=== PATIENT | female | born 1980 | race Caucasian/White ===

== ENCOUNTER 2017-06-11 16:00 | Inpatient (IN) ==
[2017-06-11] MEDS ORDERED: Ketorolac 30 MG/ML VIAL IVP ONE (16:36)
[2017-06-11] MEDS ORDERED: Ondansetron 4 MG/2 ML VIAL IVP ONE (16:36)
[2017-06-11] MEDS ORDERED: 0.9 % Sodium Chloride 1,000 ML IVC ONE (16:37)
--- NOTE | 2017-06-11 16:41 | Emergency Department Note ---
Disposition Clinical Impression: Pancreatitis Qualifiers: Chronicity: acute Pancreatitis type: unspecified pancreatitis type Acute pancreatitis complication: no infection or necrosis Qualified Code(s): K85.90 - Acute pancreatitis without necrosis or infection, unspecified Disposition: Admitted As Inpatient Condition: Good Referrals: Ramila Luna CNP [Primary Care Provider] - Forms: ED Satisfaction Letter, Work/School Release Abdominal Pain HPI - General Chief Complaint: ED Abdominal Pain Stated Complaint: stomach pain, vomiting Time Seen by Provider: 06/11/17 16:15 Source: patient, family Mode of arrival: private vehicle Limitations: no limitations Nursing Notes Reviewed: Yes Vital Signs Reviewed: Yes - History of Present Illness HPI Narrative: Patient presents to the ED with epigastric abdominal pain, nausea or vomiting. States the pain has been going on for over a week. She was recently admitted at [facility] from June 03 the for pancreatitis. States she is still having pain when she was discharged. The following day she went to [facility] ED for the pain. She states they gave her a shot of pain medication and did some blood work. States the doctor came in and said it was the same as before and asked that she wanted to be admitted or go home. She chose to go home because she does not like [facility]. She has continued to have pain since that time. She saw her process controller today for routine follow-up who advised that she come back to the ED if she was still having that much pain. She describes her pain as constant and throbbing. She rates it an 8 out of 10. She has had 2 episodes of emesis today. She has had some intermittent diarrhea after being constipated while at [facility]. She states she is hot and cold at night but denies any recorded fevers. No urinary symptoms. She had a prior episode of pancreatitis in August of this year and was also hospitalized at [facility] at that time. She states they told her it was due to her new diabetic medication at that time. She states they did not give her a cause for her pancreatitis last week. She has had her gallbladder removed. She has also had a bowel resection due to a ruptured appendix aproximately 5 years ago as well as a hysterectomy due to uterine cancer. Other notable conditions include diabetes, CKD, fatty liver and GERD. She states her sugars have been well controlled recently in the s. She has some 7.5 mg hydrocodone that was prescribed for her back pain which she last took this morning but states she threw it back up. She was also prescribed Phenergan at [facility] which she took this morning as well. She has not vomited again since the Phenergan but has not tried to eat or drink since that time. Pain Scale: 8 - Related Data Home Medications Medication Instructions Recorded Confirmed Ammonium Lactate [Lac-Hydrin Five] 113 gm TP DAILY 06/11/17 06/11/17 Cholecalciferol (Vitamin D3) 1,000 unit PO BID 06/11/17 06/11/17 [Vitamin D] Docusate Sodium [Stool Softener] 100 mg PO DAILY 06/11/17 06/11/17 Doxepin HCl 75 mg PO DAILY 06/11/17 06/11/17 Duloxetine HCl [Cymbalta] 60 mg PO DAILY 06/11/17 06/11/17 Gabapentin [Neurontin] 300 mg PO TID 06/11/17 06/11/17 HYDROcodone/Acet 7.5/325 mg [[place] 1 tab PO TID 06/11/17 06/11/17 7.5-325 mg] Insulin Degludec [Tresiba 120 unit SQ DAILY 06/11/17 06/11/17 Flextouch U-100] Insulin LISPRO [Humalog] 0 unit SQ ACHS 06/11/17 06/11/17 Omeprazole [PriLOSEC] 20 mg PO DAILY 06/11/17 06/11/17 hydrOXYzine HCl [Hydroxyzine HCl] 50 mg PO QID 06/11/17 06/11/17 lamoTRIgine [Lamotrigine] 200 mg PO BID 06/11/17 06/11/17 Allergies Allergy/AdvReac Type Severity Reaction Status Date / Time No Known Allergies Allergy Verified 06/11/17 16:26 Constitutional: Denies: fever, chills, weakness, weight change Eyes: Denies: eye pain, eye discharge, vision change ENT ED: Denies: ear pain, throat pain, dental pain, hearing loss, epistaxis, congestion, dysphagia Cardiovascular: Denies: chest pain, palpitations, dyspnea on exertion, edema, syncope Respiratory: Denies: cough, dyspnea, wheezes, hemoptysis, stridor Gastrointestinal: Reports: as per HPI, abdominal pain, nausea, vomiting. Denies : diarrhea, constipation, hematemesis, melena, hematochezia Genitourinary: Denies: dysuria, frequency, hematuria, discharge Musculoskeletal: Denies: back pain, neck pain, arthralgia, myalgia Integumentary: Denies: rash, abrasion, lesions Neurological: Denies: headache, weakness, numbness, paresthesias, confusion, abnormal gait, vertigo Psychiatric: Denies: anxiety, depression, suicidal thoughts, homicidal thoughts , auditory hallucinations, visual hallucinations Endocrine: Denies: fatigue Hematological/Lymphatic: Denies: easy bleeding, easy bruising Allergic/Immunologic: Denies: facial swelling, urticaria Abdominal Pain PMH - Past Medical History Medical history: Reports: arthritis, cancer, diabetes, GERD, hypertension, renal disease Female Surgical History: Reports: Adenoidectomy, appendectomy, cholecystectomy, hysterectomy, Tonsillectomy Psychiatric history: Reports: no psych history - Social History Smoking status: Never smoker Alcohol use: Reports: none Drug use: Reports: none Physical Exam - General Limitations: no limitations General appearance: alert, in no apparent distress - Head Head exam: atraumatic, normocephalic, normal inspection - Eye Eye exam: Present: normal appearance, PERRL, EOMI - ENT ENT exam: normal exam, normal oropharynx, mucous membranes moist - Neck Neck exam: Present: normal inspection, full ROM, trachea midline - Chest Chest inspection: Present: normal inspection, symmetric chest wall rise - Respiratory Respiratory exam: Present: normal lung sounds bilaterally - Cardiovascular Cardiovascular exam: Present: regular rate, normal rhythm, normal heart sounds - Abdominal Exam Abdominal exam: Present: soft, tenderness. Absent: Non-Tender, distention, guarding, rebound, rigidity, normal bowel sounds Abdominal tenderness: Present: RUQ, LUQ, epigastrium, moderate - Extremities Exam Extremities exam: Present: normal inspection, full ROM. Absent: tenderness, pedal edema - Back Exam Back exam: Present: normal inspection, full ROM. Absent: tenderness - Neurological Exam Neurological exam: Present: alert, oriented X3 - Psychiatric Psychiatric exam: Present: normal affect, normal mood - Skin Skin exam: Present: warm, dry, intact, normal color Course Course Narrative: Reason presents to the ED complaining of persistent epigastric abdominal pain, nausea or vomiting since being hospitalized for pancreatitis last week. She is afebrile and nontoxic in appearance but is hypertensive. She has tenderness across the entire upper abdomen. Will give IV fluids, medication for pain and nausea and obtain labs to evaluate further. - Reevaluation(s) Reevaluation #1: Patient reports nausea has improved and she has not had any vomiting but her pain has only improved from 827. Laboratory studies are unremarkable other than stable chronic kidney disease and elevated lipase. I have no records to know if her lipase is higher or lower than when she had pancreatitis one week ago. Given that she is having persistent symptoms we will obtain a CT scan to look for evidence of persistent pancreatitis or any complications from her recent pancreatitis. Will give additional pain medication. Time: 17:52 Reevaluation #2: Pain improved [address] scan does not show any current pancreatic inflammation or other acute abnormalities. Discussed with patient the option of pain and nausea medicine at home versus admission for pain control. Patient states she does not feel like she can manage her symptoms at home as she has already tried this for the past 5 days without success. I spoke to the hospitalist on-call, Dr. Garcia, who has agreed to admit the patient for IV fluids and pain control. We will make her nothing by mouth except ice chips and meds. Vital Signs Temperature 98.0 F 06/11/17 16:11 Pulse Rate 83 06/11/17 16:11 Respiratory Rate 18 06/11/17 16:11 Blood Pressure 192/119 06/11/17 16:11 O2 Sat by Pulse Oximetry 99 06/11/17 16:11 Temperature 98.0 F 06/11/17 16:11 Pulse Rate 83 06/11/17 16:11 Respiratory Rate 18 06/11/17 16:11 Blood Pressure 192/119 06/11/17 16:11 O2 Sat by Pulse Oximetry 99 06/11/17 16:11 Oxygen Delivery Oxygen Delivery Room Air Abdominal Pain - Differential Diagnosis Differential Diagnosis: Likely: abdominal pain non-specific, pancreatitis - Medical Records Medical records reviewed: Yes I reviewed the patient's medical records. - Lab Data Lab results reviewed: Yes I reviewed the patient's lab results. Result diagrams: 06/11/17 17:14 06/11/17 17:14 Lab Results 06/11/17 06/11/17 Range/Units 17:14 17:14 WBC 5.4 (4.3-11.1) K/mcL RBC 5.32 H (3.82-4.97) M/mcL Hgb 14.8 (11.5-15.4) g/dL Hct 45.7 H (35.3-44.9) % MCV 85.9 (83.0-100.0) fL MCH 27.8 L (28.0-33.3) pg MCHC 32.4 (31.6-35.5) g/dL RDW 13.7 (11.5-14.5) % Plt Count 112 L (140-400) K/mcL MPV 11.3 (9.4-12.4) fL Immature Gran % 0.2 (0-4) % Seg Neutrophils % 54.2 % Lymphocytes % 34.2 % Monocytes % 7.3 % Eosinophils % 3.7 % Basophils % 0.4 % Neutrophils # 2.9 (1.6-8.9) K/mcL Lymphocytes # 1.8 (0.6-4.6) K/mcL Monocytes # 0.4 (0.0-1.3) K/mcL Eosinophils # 0.2 (0.0-0.6) K/mcL Basophils # 0.0 (0.0-0.2) K/mcL Sodium 137 (136-145) mEq/L Potassium 4.1 (3.5-4.5) mEq/L Chloride 99 (98-109) mEq/L Carbon Dioxide 30 H (19-29) mEq/L BUN 10 (7-20) mg/dL Creatinine 1.23 H (0.57-1.11) mg/dL Est GFR ( Amer) 59 L (> 60) Est GFR (Non-Af Amer) 49 L (> 60) BUN/Creatinine Ratio 8 (6-26) Glucose 192 H (70-99) mg/dL Calculated Osmolality 288 (280-300) Calcium 10.0 (8.6-10.8) mg/dL Total Bilirubin 0.4 (0.2-1.2) mg/dL AST 21 (5-34) Units/L ALT 27 (0-55) Units/L Alkaline Phosphatase 122 (38-126) Units/L Serum Total Protein 7.9 (6.0-8.3) g/dL Albumin 3.3 L (3.5-5.0) g/dL Globulin 4.6 H (2.4-3.5) g/dL Albumin/Globulin Ratio 0.7 L (1.1-2.2) Lipase 92 H (8-78) Units/L
[2017-06-11 17:18] LABS: Basophils % 0.4 %; Eosinophils # 0.2 K/mcL (0.0-0.6); Eosinophils % 3.7 %; Hematocrit 45.7 % (35.3-44.9); Hemoglobin 14.8 g/dL (11.5-15.4); Immature Granulocytes % 0.2 % (0-4); Lymphocytes # 1.8 K/mcL (0.6-4.6); Lymphocytes % 34.2 %; Mean Corpuscular HGB Conc 32.4 g/dL (31.6-35.5); Mean Corpuscular Hemoglobin 27.8 pg (28.0-33.3); Mean Corpuscular Volume 85.9 fL (83.0-100.0); Mean Platelet Volume 11.3 fL (9.4-12.4); Monocytes # 0.4 K/mcL (0.0-1.3); Monocytes % 7.3 %; Neutrophils # 2.9 K/mcL (1.6-8.9); Platelet Count 112 K/mcL (140-400); Red Blood Count 5.32 M/mcL (3.82-4.97); Red Cell Distribution Width 13.7 % (11.5-14.5); Segmented Neutrophils % 54.2 %
[2017-06-11 17:35] LABS: Albumin 3.3 g/dL (3.5-5.0); Albumin/Globulin Ratio 0.7 (1.1-2.2); Bilirubin,Total 0.4 mg/dL (0.2-1.2); Globulin 4.6 g/dL (2.4-3.5); Potassium 4.1 mEq/L (3.5-4.5); Total Protein 7.9 g/dL (6.0-8.3)
[2017-06-11] MEDS ORDERED: *HR* HYDROmorphone (PF) 1 MG/ML SYRINGE IVP ONE (17:52)
[2017-06-11] MEDS ORDERED: *HR* HYDROmorphone (PF) 1 MG/ML SYRINGE IVP PRN (19:16)
[2017-06-11] MEDS ORDERED: Naloxone 0.4 MG/ML INJ IVP PRN ×2 (19:16→20:55)
[2017-06-11] MEDS ORDERED: Ondansetron 4 MG/2 ML VIAL IVP PRN (19:16)
[2017-06-11] MEDS ORDERED: *HR* Dextrose 50 % in Water (Syg) 50 ML SYRINGE IVP PRN ×2 (19:19→20:55)
[2017-06-11] MEDS ORDERED: Dextrose Gel 15 GM PO PRN ×4 (19:19→20:55)
[2017-06-11] MEDS ORDERED: D5% in Water 1,000 ML IVC PRN ×2 (19:19→20:55)
[2017-06-11] MEDS ORDERED: 0.9 % Sodium Chloride 1,000 ML IVC SCH (19:30)
[2017-06-11] MEDS: 0.9 % Sodium Chloride 1,000 ML IVC SCH (21:59)
[2017-06-11] MEDS: Gabapentin 300 MG CAPSULE PO SCH (22:00)
[2017-06-11] MEDS: Cholecalciferol (D-3) 1,000 UNIT TABLET PO SCH (22:00)
[2017-06-11] MEDS: lamoTRIgine 100 MG TABLET PO SCH (22:00)
[2017-06-11] MEDS: hydrOXYzine pamoate 25 MG CAPSULE PO SCH (22:00)
[2017-06-11] MEDS: *HR* HYDROmorphone (PF) 1 MG/ML SYRINGE IVP PRN (22:01)
[2017-06-12] MEDS ORDERED: Insulin LISPRO 300 UNITS/3 ML VIAL SQ SCH
[2017-06-12] MEDS: Insulin LISPRO 300 UNITS/3 ML VIAL SQ SCH ×4 (00:16→17:40)
[2017-06-12] MEDS: *HR* HYDROmorphone (PF) 1 MG/ML SYRINGE IVP PRN ×6 (02:07→23:42)
[2017-06-12] MEDS: 0.9 % Sodium Chloride 1,000 ML IVC SCH (06:05)
[2017-06-12] MEDS: hydrOXYzine pamoate 25 MG CAPSULE PO SCH ×4 (09:49→23:43)
[2017-06-12] MEDS: Gabapentin 300 MG CAPSULE PO SCH ×3 (09:49→23:44)
[2017-06-12] MEDS: Cholecalciferol (D-3) 1,000 UNIT TABLET PO SCH ×2 (09:49→23:43)
[2017-06-12] MEDS: lamoTRIgine 100 MG TABLET PO SCH ×2 (09:49→23:42)
[2017-06-12] MEDS: Ammonium Lactate 30 APPL/225 GM BOTTLE TP SCH (09:50)
[2017-06-12] MEDS: Ondansetron 4 MG/2 ML VIAL IVP PRN ×2 (09:57→19:14)
--- NOTE | 2017-06-12 14:27 | Internal Med History&Physical ---
Date of Encounter: 06/12/17 Time of Encounter: 14:24 Assessment and Plan (1) Pancreatitis Current visit: Yes Status: Acute Patient with continued symptoms and pain related to pancreatitis. Admission labs show a lipase of 92. CT of the abdomen was obtained and showed no acute process. Patient with several hospital visits in recent weeks for treatment of pancreatitis and pain. Patient continues to be symptomatic, with pain and nausea. Patient does state that after each hospital visit that she had nausea that was triggered from eating, but continued to have oral intake. Currently we will keep patient nothing by mouth for at least 24 hours. We will continue with IV fluids to maintain hydration. We will check serial lipase and review labs. Qualifiers: Chronicity: acute Pancreatitis type: unspecified pancreatitis type Acute pancreatitis complication: no infection or necrosis Qualified Code(s): K85.90 - Acute pancreatitis without necrosis or infection, unspecified (2) Diabetes mellitus Current visit: Yes Status: Chronic Patient with history of uncontrolled diabetes. Patient states that she believes her most recent hemoglobin A1c was 7.8. We will continue with current coverage and do fingersticks before meals and at bedtime and cover with sliding scale. We will hold any oral diabetic medications. We will repeat hemoglobin A1c on next blood draw Qualifiers: Diabetes mellitus type: type 2 Diabetes mellitus complication status: with kidney complications Diabetes mellitus complication detail: with chronic kidney disease Diabetes mellitus intermediate insulin use: with furnace keeper use Chronic kidney disease stage: stage 3 (moderate) Qualified Code(s): E11.22 - Type 2 diabetes mellitus with diabetic chronic kidney disease; N18.3 - Chronic kidney disease, stage 3 (moderate); N18.3 - Chronic kidney disease, stage 3 ( moderate); Z79.4 - shelter (current) use of insulin; Z79.4 - grey roll man ( current) use of insulin; Z79.4 - grey roll man (current) use of insulin; Z79.4 - grey roll man (current) use of insulin (3) Chronic kidney disease Current visit: Yes Status: Chronic Patient with history of stage III chronic kidney disease. Admission creatinine shows 1.23 with a BUN of 10. We will continue to monitor renal process draining serial labs. Qualifiers: Chronic kidney disease stage: stage 3 (moderate) Qualified Code(s): N18.3 - Chronic kidney disease, stage 3 (moderate) (4) Lumbar disc disease Current visit: Yes Status: Chronic Patient states history of lumbar disc disease. Denies any history of surgery but states she has had several interventions for pain control. Patient currently denies any low back pain or radicular symptoms. We will continue to monitor patient's pain status. We will avoid increasing her narcotics at this time due to her pancreatitis Internal Medicine - H&P: HPI Admitted From: Home Plans for Post Hospital Care: Home History of present illness: Ms. Nguyen is a 36 year old female Patient presents to the ED with epigastric abdominal pain, nausea or vomiting. She was recently admitted at [facility] from June 03 the for pancreatitis. States she is still having pain when she was discharged. The following day she went to [facility] ED for the pain and was treated for pain and discharged to homed. She saw her poultry feed supervisor today for routine follow- up who advised that she come back to the ED if she was still having that much pain. She describes her pain as constant and throbbing, mostly to the upper abdomen. States that her pain becomes severe during palpation and she has noticed that eating has triggered an increase in the pain. Pt states that she has not vomited since her admission. She had a prior episode of pancreatitis in August of this year and was also hospitalized at [facility] at that time. She states they told her it was due to her new diabetic medication at that time. She has had her gallbladder removed approximately 3 years ago . She has also had a bowel resection due to a ruptured appendix aproximately 5 years ago as well as a hysterectomy due to uterine cancer. Other notable conditions include diabetes, CKD, fatty liver and GERD. She states her sugars have been well controlled, but states that her last HbgA1C was 7.8. Patients labs were reviewed with Lipase 92. CT of abdomen was reviewed and showed no acute process. She takes 7.5 mg hydrocodone TID daily, which prescribed for lumbar disc disease. Past Med Surg Social Fam HX - Past Medical History Medical history: arthritis, cancer, diabetes, GERD, hypertension, liver disease , renal disease Psychiatric history: bipolar, depression - Past Surgical History Surgical History: cancer surgery (Adenoidectomy, appendectomy, cholecystectomy, hysterectomy, Tonsillectomy), hysterectomy (hysterectomy secondary to uterine CA , colon resection secondary to tuptured appendex), other (Adenoidectomy, appendectomy, cholecystectomy, hysterectomy, Tonsillectomy) - Social History Smoking Status: Never smoker Smokeless Tobacco Status: No Alcohol use: none Drug use: none Current living situation: Home - Independent Activity Level: Independent ambulation Recent Out of Country Travel Within the Last 8 Weeks: No Exposure or Possible Exposure to Illness During Travel: No - Family History Mother History Unknown: Yes Father History Unknown: Yes Internal Medicine - H&P: Meds Ammonium Lactate [Lac-Hydrin Five] 113 gm TP DAILY 06/11/17 [History] Cholecalciferol (Vitamin D3) [Vitamin D] 1,000 unit PO BID 06/11/17 [History] Docusate Sodium [Stool Softener] 100 mg PO DAILY 06/11/17 [History] Doxepin HCl 75 mg PO DAILY 06/11/17 [History] Duloxetine HCl [Cymbalta] 60 mg PO DAILY 06/11/17 [History] Gabapentin [Neurontin] 300 mg PO TID 06/11/17 [History] HYDROcodone/Acet 7.5/325 mg [[place] 7.5-325 mg] 1 tab PO TID 06/11/17 [History] Insulin Degludec [Tresiba Flextouch U-100] 120 unit SQ DAILY 06/11/17 [History] Insulin LISPRO [Humalog] 0 unit SQ ACHS 06/11/17 [History] Omeprazole [PriLOSEC] 20 mg PO DAILY 06/11/17 [History] hydrOXYzine HCl [Hydroxyzine HCl] 50 mg PO QID 06/11/17 [History] lamoTRIgine [Lamotrigine] 200 mg PO BID 06/11/17 [History] 3 Allergy/AdvReac Type Severity Reaction Status Date / Time No Known Allergies Allergy Verified 06/11/17 22:19 All Systems PM: A 10-system review of systems was performed and is negative for pertinent findings except as documented above in the HPI. - Constitutional Constitutional: no chills, no fever(s), no night sweats - EENT Eyes: no change in vision, no discharge, no pain, no photophobia Ears: no ear discharge, no ear pain, no tinnitus Nose, mouth and throat: no dysphagia, no nasal discharge, no neck pain, no sore throat - Cardiovascular Cardiovascular ROS IM: no chest pain, no diaphoresis, no dyspnea, no lightheadedness, no palpitations, no syncope - Respiratory Respiratory: no cough, no dyspnea, no wheezing, no excessive phlegm production - Gastrointestinal Gastrointestinal: as per HPI, nausea, vomiting Additional comments: Patient complains of pain to epigastric area which increases during palpation - Genitourinary Genitourinary: no change in urinary stream, no dysuria, no flank pain, no hematuria - Musculoskeletal Musculoskeletal ROS IM: no numbness, no tingling - Integumentary Integumentary IM: no rash, no unusual bruising - Neurological Neurological ROS: no confusion, no convulsions, no focal weakness, no numbness, no tingling, no tremor(s) - Constitutional Vitals: Temp Pulse Resp BP Pulse Ox 98.0 F 76 18 104/60 93 06/12/17 12:00 06/12/17 12:00 06/12/17 12:00 06/12/17 12:00 06/12/17 12:00 General appearance: Present: A&O X 3, pleasant, obese - Head Head exam: Present: atraumatic, normocephalic - Neck Neck exam general surgery: Present: supple, trachea midline. Absent: lymphadenopathy - Respiratory Respiratory exam: Present: CTAB. Absent: accessory muscle use, rales, rhonchi, wheezes Additional comments: Respiratory rate is regular and relaxed - Cardiovascular Cardiovascular exam: Present: RRR, +S1, +S2. Absent: diastolic murmur, gallop, rubs, systolic murmur - GI/Abdominal GI/Abdominal exam: Present: guarding, normal bowel sounds, tenderness Additional comments: Abdomen soft, nondistended, with bowel sounds heard in all quadrants. Patient with guarding during palpation and noted extreme tenderness to upper quadrants. - Neurological Exam Neurological exam: Present: CN II-XII intact, oriented X3, no focal deficits. Absent: pronater drift, facial droop, speech deficit - Skin Skin exam: Present: dry, intact Internal Med - H&P Results - Labs CBC & Chem 7: 06/11/17 17:14 06/11/17 17:14 Labs: Lipase 92 - VTE Reasons for not Prescribing Prophylaxis: Treatment not Indicated - Low risk for VTE
[2017-06-12] MEDS ORDERED: Mag Hydrox/Al Hydrox/Simeth 30 ML UDC PO PRN (15:27)
[2017-06-12] MEDS: Pantoprazole 40 MG VIAL IVP SCH (17:40)
[2017-06-13] MEDS: Insulin LISPRO 300 UNITS/3 ML VIAL SQ SCH ×4 (04:54→18:12)
[2017-06-13] MEDS: Pantoprazole 40 MG VIAL IVP SCH ×2 (05:36→17:24)
[2017-06-13] MEDS: *HR* HYDROmorphone (PF) 1 MG/ML SYRINGE IVP PRN ×4 (05:36→22:22)
[2017-06-13 05:56] LABS: Amylase 46 Units/L (25-125); Lipase 24 Units/L (8-78)
[2017-06-13] MEDS: Gabapentin 300 MG CAPSULE PO SCH ×3 (09:58→22:07)
[2017-06-13] MEDS: hydrOXYzine pamoate 25 MG CAPSULE PO SCH ×4 (09:58→22:06)
[2017-06-13] MEDS: Ammonium Lactate 30 APPL/225 GM BOTTLE TP SCH (09:59)
[2017-06-13] MEDS: lamoTRIgine 100 MG TABLET PO SCH ×2 (09:59→22:07)
[2017-06-13] MEDS: Cholecalciferol (D-3) 1,000 UNIT TABLET PO SCH ×2 (09:59→22:07)
--- NOTE | 2017-06-13 10:27 | Internal Med Progress Note ---
Date of Encounter: 06/13/17 Time of Encounter: 10:25 - Assessment and plan (1) Pancreatitis Current Visit: Yes Status: Acute Assessment and plan: Patient continues to complain of pain to upper quadrant intermittently. Pain increases during oral intake and during palpation of abdomen. Admission lipase was at 92 and today's labs show lipase dropping to 24 with an amylase of 46. Patient has remained nothing by mouth with ice chips since admission. No further vomiting since admission. States history of reflux and was started on PPI. Patient states no follow-up with GI in the past. We will continue patient nothing by mouth with ice chips and continue with IV fluids. Will discuss patient with Dr. Garcia. Qualifiers: Chronicity: acute Pancreatitis type: unspecified pancreatitis type Acute pancreatitis complication: no infection or necrosis Qualified Code(s): K85.90 - Acute pancreatitis without necrosis or infection, unspecified (2) Diabetes mellitus Current Visit: Yes Status: Chronic Assessment and plan: No acute issues. Patient's blood sugars have been list to 150, patient also was remain nothing by mouth. We will continue with fingersticks and current coverage. Qualifiers: Diabetes mellitus type: type 2 Diabetes mellitus complication status: with kidney complications Diabetes mellitus complication detail: with chronic kidney disease Diabetes mellitus watermaster insulin use: with penitentiary use Chronic kidney disease stage: stage 3 (moderate) Qualified Code(s): E11.22 - Type 2 diabetes mellitus with diabetic chronic kidney disease; N18.3 - Chronic kidney disease, stage 3 (moderate); N18.3 - Chronic kidney disease, stage 3 ( moderate); Z79.4 - marine oil terminal superintendent (current) use of insulin; Z79.4 - snf ( current) use of insulin; Z79.4 - snf (current) use of insulin; Z79.4 - snf (current) use of insulin (3) Chronic kidney disease Current Visit: Yes Status: Chronic Assessment and plan: No acute issues. Patient's mental status remains stable per this morning's labs. We will continue with current medications and plan acute care. Qualifiers: Chronic kidney disease stage: stage 3 (moderate) Qualified Code(s): N18.3 - Chronic kidney disease, stage 3 (moderate) (4) Lumbar disc disease Current Visit: Yes Status: Chronic Assessment and plan: No acute issues. Patient has had no complaints of low back pain since admission. Denies any radicular symptoms. We will continue with current plan of care - Subjective Interval history: Patient appears relaxed and currently denies any nausea. Patient states she still continues to have pain to her upper abdominal area which increases after taking any oral intake and during palpation of abdomen. Patient states that she continues to have nausea triggered by oral intake has denied any vomiting since her admission. Patient states to frequency of her nausea has diminished, but patient has remained nothing by mouth with ice chips since her admission. Patient's admission lipase was 92. Today's lab work shows lipase at 24 and amylase of 46. Patient does state a history of GERD, but states she was not taking any medication at home routinely. - Constitutional Vitals: Temp Pulse Resp BP Pulse Ox 97.6 F 76 18 109/71 92 06/13/17 07:37 06/13/17 07:37 06/13/17 07:37 06/13/17 07:37 06/13/17 07:37 General appearance: Present: A&O X 3, pleasant, obese - Respiratory Respiratory exam: Present: CTAB. Absent: accessory muscle use, rales, rhonchi, wheezes Additional comments: Lungs clear to refills but diminished throughout lower posterior bases, likely secondary to obesity. - Cardiovascular Cardiovascular exam: Present: RRR, +S1, +S2. Absent: diastolic murmur, gallop, rubs, systolic murmur - GI/Abdominal GI/Abdominal exam: Present: normal bowel sounds, soft Additional comments: Patient continues to complain of tenderness during palpation to upper quadrants of abdomen. Abdomen remains soft and nondistended. - Neurological Exam Neurological exam: Present: CN II-XII intact, oriented X3, no focal deficits. Absent: pronater drift, facial droop, speech deficit - Skin Skin exam: Present: dry, intact Internal Medicine: Result - Labs CBC & Chem 7: 06/11/17 17:14 06/11/17 17:14 Labs: Lipase 24, amylase 46 - VTE Reasons for not Prescribing Prophylaxis: Treatment not Indicated - Low risk for VTE Consult Discharge Plan - Plan Referrals: Ramila Luna CNP [Primary Care Provider] -
[2017-06-14] MEDS: Insulin LISPRO 300 UNITS/3 ML VIAL SQ SCH ×3 (00:15→12:55)
[2017-06-14 04:53] LABS: Hematocrit 41.1 % (35.3-44.9); Hemoglobin 13.1 g/dL (11.5-15.4)
[2017-06-14] MEDS: *HR* HYDROmorphone (PF) 1 MG/ML SYRINGE IVP PRN ×3 (05:27→13:40)
[2017-06-14] MEDS: Pantoprazole 40 MG VIAL IVP SCH (05:31)
[2017-06-14] MEDS: Gabapentin 300 MG CAPSULE PO SCH ×2 (08:48→15:42)
[2017-06-14] MEDS: hydrOXYzine pamoate 25 MG CAPSULE PO SCH ×2 (08:48→13:40)
[2017-06-14] MEDS: lamoTRIgine 100 MG TABLET PO SCH (08:48)
[2017-06-14] MEDS: Cholecalciferol (D-3) 1,000 UNIT TABLET PO SCH (08:49)
[2017-06-14] MEDS: Ammonium Lactate 30 APPL/225 GM BOTTLE TP SCH (08:50)
[2017-06-14] MEDS: Ondansetron 4 MG/2 ML VIAL IVP PRN (09:27)
--- NOTE | 2017-06-14 11:35 | Internal Med Progress Note ---
Date of Encounter: 06/14/17 Time of Encounter: 11:33 - Assessment and plan (1) Pancreatitis Current Visit: Yes Status: Acute Assessment and plan: Patient continues to complain of pain to upper quadrant intermittently. Pain increases during oral intake and during palpation of abdomen. Admission lipase was at 92 and today's labs show lipase dropping to 24 with an amylase of 46. Patient has been advanced on her diet and continues to complain of pain with intake of solid foods. Patient states that she does okay with fluids. No reported nausea or vomiting. We will discontinue current IV fluids. We will start on Carafate and continue with PPI. Will discuss patient with Dr. Garcia. Patient with possible discharge for today or tomorrow. Qualifiers: Chronicity: acute Pancreatitis type: unspecified pancreatitis type Acute pancreatitis complication: no infection or necrosis Qualified Code(s): K85.90 - Acute pancreatitis without necrosis or infection, unspecified (2) Diabetes mellitus Current Visit: Yes Status: Chronic Assessment and plan: No acute issues. Patient's blood sugars have been list to 150, patient also was remain nothing by mouth. We will continue with fingersticks and current coverage. 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 Patient's mental status remains stable per this morning's labs. We will continue with current medications and plan acute care. Qualifiers: Chronic kidney disease stage: stage 3 (moderate) Qualified Code(s): N18.3 - Chronic kidney disease, stage 3 (moderate) (4) Lumbar disc disease Current Visit: Yes Status: Chronic Assessment and plan: No acute issues. Patient has had no complaints of low back pain since admission. Denies any radicular symptoms. We will continue with current plan of care - Subjective Interval history: Patient states that she continues to have slight nausea and epigastric pain after eating solid foods. States that she does well with liquids. Patient continues complaining of tenderness to epigastric area during palpation. States long history of GERD and that she has been taking PPIs at home.. - Constitutional Vitals: Temp Pulse Resp BP Pulse Ox 98.0 F 82 18 106/70 90 06/14/17 07:39 06/14/17 07:39 06/14/17 07:39 06/14/17 07:39 06/14/17 07:39 General appearance: Present: A&O X 3, pleasant, obese - Respiratory Respiratory exam: Present: CTAB. Absent: accessory muscle use, rales, rhonchi, wheezes - Cardiovascular Cardiovascular exam: Present: RRR, +S1, +S2. Absent: diastolic murmur, gallop, rubs, systolic murmur - GI/Abdominal GI/Abdominal exam: Present: normal bowel sounds, soft, tenderness, no peritoneal signs. Absent: distended Additional comments: Please have tenderness to upper quadrant strength palpation. Abdomen remains soft and nondistended. - Extremities Exam Extremities exam: Present: warm, radial pulses palpable and symmetrical. Absent : calf tenderness, cyanotic, pedal edema - Neurological Exam Neurological exam: Present: CN II-XII intact, oriented X3, no focal deficits. Absent: pronater drift, facial droop, speech deficit - Skin Skin exam: Present: dry, intact Internal Medicine: Result - Labs CBC & Chem 7: 06/14/17 04:30 06/11/17 17:14 Labs: Short CBC 06/14/17 Range/Units 04:30 Hgb 13.1 D (11.5-15.4) g/dL Hct 41.1 (35.3-44.9) % - VTE Reasons for not Prescribing Prophylaxis: Treatment not Indicated - Low risk for VTE Documentation of Mechanical Device: Graduated compression elastic hosiery Consult Discharge Plan - Plan Referrals: Ramila Luna, [employer] [Primary Care Provider] -
[2017-06-14 12:37] LABS: Amylase 58 Units/L (25-125); Lipase 71 Units/L (8-78)
[2017-06-14 12:53] VITALS: BP 94/56
--- NOTE | 2017-06-14 13:50 | Discharge Summary ---
Date of Encounter: 06/14/17 Time of Encounter: 13:47 - Discharge Diagnosis (1) Pancreatitis Priority: Primary Status: Acute Qualifiers: Chronicity: acute Pancreatitis type: unspecified pancreatitis type Acute pancreatitis complication: no infection or necrosis Qualified Code(s): K85.90 - Acute pancreatitis without necrosis or infection, unspecified (2) Diabetes mellitus Priority: Secondary Status: Chronic Qualifiers: Diabetes mellitus type: type 2 Diabetes mellitus complication status: with kidney complications Diabetes mellitus complication detail: with chronic kidney disease Diabetes mellitus technician terminal and repeater insulin use: with technician terminal and repeater use Chronic kidney disease stage: stage 3 (moderate) Qualified Code(s): E11.22 - Type 2 diabetes mellitus with diabetic chronic kidney disease; N18.3 - Chronic kidney disease, stage 3 (moderate); N18.3 - Chronic kidney disease, stage 3 ( moderate); Z79.4 - buttermaker (current) use of insulin; Z79.4 - buttermaker ( current) use of insulin; Z79.4 - jail (current) use of insulin; Z79.4 - jail (current) use of insulin (3) Chronic kidney disease Priority: Secondary Status: Chronic Qualifiers: Chronic kidney disease stage: stage 3 (moderate) Qualified Code(s): N18.3 - Chronic kidney disease, stage 3 (moderate) (4) Lumbar disc disease Priority: Secondary Status: Chronic - Discharge Medications Home Medications: Ammonium Lactate [Lac-Hydrin Five] 113 gm TP DAILY 06/11/17 [History] Cholecalciferol (Vitamin D3) [Vitamin D] 1,000 unit PO BID 06/11/17 [History] Docusate Sodium [Stool Softener] 100 mg PO DAILY 06/11/17 [History] Doxepin HCl 75 mg PO DAILY 06/11/17 [History] Duloxetine HCl [Cymbalta] 60 mg PO DAILY 06/11/17 [History] Gabapentin [Neurontin] 300 mg PO TID 06/11/17 [History] HYDROcodone/Acet 7.5/325 mg [[place] 7.5-325 mg] 1 tab PO TID 06/11/17 [History] Insulin Degludec [Tresiba Flextouch U-100] 120 unit SQ DAILY 06/11/17 [History] Insulin LISPRO [Humalog] 0 unit SQ ACHS 06/11/17 [History] Omeprazole [PriLOSEC] 20 mg PO DAILY 06/11/17 [History] hydrOXYzine HCl [Hydroxyzine HCl] 50 mg PO QID 06/11/17 [History] lamoTRIgine [Lamotrigine] 200 mg PO BID 06/11/17 [History] Allergies/Adverse Reactions: 3 Allergy/AdvReac Type Severity Reaction Status Date / Time No Known Allergies Allergy Verified 06/11/17 22:19 Date of admission: 06/12/17 14:38 Primary care physician: PHIL Santos Discharging clinician: Khadar Garcia - Patient Status Disposition: Home, Self-Care Functional capacity at discharge: independent ambulation Overall status at discharge: patient is progressing back to baseline - Discharge Instructions Follow Up With: Ramila Luna CNP [Primary Care Provider] - - Diet and Activity Activity: increase activity as tolerated Diet: advance to your usual diet (Patient is to follow up with gastroenterology for further evaluation) Hospital course: Ms. Nguyen is a 36 year old female Presented to emergency room with complaints of abdominal pain and nausea and vomiting. Patient had recently been seen and the ER of another [facility] where she was treated for possible pancreatitis and reportedly had been discharged after approximately 2 days of evaluation. Patient had a reoccurrence of the pain approximately 2-3 days after discharge and came to this facility she was admitted for evaluation of her abdominal pain and nausea. On admission patient's lipase was recorded at 92 and she complained of moderate epigastric pain on palpation and immediately after any oral intake. Patient was made nothing by mouth for approximately 36 hours and given IV fluids. Patient's labs were repeated with serial lipase, which showed the levels dropping to 24. Patient was then slowly increased on oral diet and a serial lipase was still obtained which showed 70. Amylase was 46. Patient related a long history of gastric reflux and states that she was taking omeprazole at home, which was managed by her PCP. Patient denies any history of a evaluation from gastroenterology. Patient was restarted on PPI and Carafate during her stay here and after 2 days oral intake continues to tolerate well. Patient's family have a GI consult for further evaluation and possible gastritis. No other acute issues were noted during stay at the facility. Patient's blood sugars remained stable and vital signs were stable. - Time Spent with Patient Total time spent providing and/or coordinating discharge services: - Constitutional Vitals: Temp Pulse Resp BP Pulse Ox 97.4 F L 69 18 94/56 91 06/14/17 12:00 06/14/17 12:00 06/14/17 12:00 06/14/17 12:00 06/14/17 12:00 General appearance: Present: A&O X 3, pleasant, obese - Head Head exam: Present: atraumatic, normocephalic - Respiratory Respiratory exam: Present: CTAB. Absent: accessory muscle use, rales, rhonchi, wheezes - Cardiovascular Cardiovascular exam: Present: RRR, +S1, +S2. Absent: diastolic murmur, gallop, rubs, systolic murmur - GI/Abdominal GI/Abdominal exam: Present: normal bowel sounds, soft, no peritoneal signs. Absent: distended, tenderness Additional comments: Remains tender on palpation to the epigastric area. - Extremities Exam Extremities exam: Present: warm, radial pulses palpable and symmetrical. Absent : calf tenderness, cyanotic, pedal edema - Neurological Exam Neurological exam: Present: CN II-XII intact, oriented X3, no focal deficits. Absent: pronater drift, facial droop, speech deficit - Skin Skin exam: Present: dry, intact - VTE Reasons for not Prescribing Prophylaxis: Treatment not Indicated - Low risk for VTE Documentation of Mechanical Device: Graduated compression elastic hosiery
[2017-06-14] MEDS ORDERED: FLUARIX QUAD 2017-18 36MOS UP/PF 0.5 ML SYRINGE IM ONE (16:03)
[2017-06-14] MEDS ORDERED: Sucralfate 1 GM TABLET PO SCH (16:30)
== END 2017-06-14 16:30 | disposition home or self-care (01) | DRG 282 ==
LOC: INPGRE 16:00 → EMEROOGRE 16:00 → INPGRE 20:17
PROVIDERS: ADMIT Internal Medicine; ATTEND Internal Medicine